=== PATIENT | female | born 1955 | race African-American/Black ===

== ENCOUNTER 2016-11-25 23:14 | Emergency (ER) | payer BC, OTHER ==
[2016-11-26 00:20] LABS: INR 0.97
[2016-11-26 00:24] LABS: BASO % 0.2 % (0.0-1.0); EOS # 0.2 K/mm3 (0.0-0.50); EOS % 1.9 % (0.0-3.0); LARGE UNSTAINED CELL # 0.2 K/mm3 (0.0-0.4); LARGE UNSTAINED CELL % 2.1 % (0.0-4.0); LYMPH # 1.9 K/mm3 (1.5-4.5); LYMPH % 19.2 % (24.0-44.0); MEAN CORPUSCULAR HEMOGLOBIN 29.2 pg (27.0-33.0); MEAN CORPUSCULAR HGB CONC 31.6 g/dl (32.0-36.5); MEAN CORPUSCULAR VOLUME 92.4 fl (80.0-96.0); MONO # 0.6 K/mm3 (0.0-0.8); MONO % 6.2 % (0.0-5.0); NEUTROPHILS # 7.1 K/mm3 (1.8-7.7); NEUTROPHILS % 70.5 % (36.0-66.0); PLATELET COUNT, AUTOMATED 314 k/mm3 (150-450); RED CELL DISTRIBUTION WIDTH 12.5 % (11.5-14.5); WHITE BLOOD COUNT 10.1 K/mm3 (4.0-10.0)
[2016-11-26 00:29] LABS: ANION GAP 8 MEQ/L (8-16); BLOOD UREA NITROGEN 17 MG/DL (7-18); CALCIUM LEVEL 8.3 MG/DL (8.5-10.1); CARBON DIOXIDE LEVEL 25 MEQ/L (21-32); CHLORIDE LEVEL 108 MEQ/L (98-107); CREATININE FOR GFR 1.18 MG/DL (0.55-1.02); GLOMERULAR FILTRATION RATE > 60.0 (>51); GLUCOSE, FASTING 132 MG/DL (70-105); POTASSIUM SERUM 3.6 MEQ/L (3.5-5.1); SODIUM LEVEL 141 MEQ/L (136-145)
--- NOTE | 2016-11-26 00:56 | EDDOCDS ---
Nurse's Notes [facility] Name: Karma Burks Age: 61 yrs Sex: Female : 1955 Arrival Date: 11/25/2016 Time: 23:14 Bed Triage 2 Private MD: [facility], [place] Diagnosis: Pain in lower leg-BILATERAL Presentation: 11/25 23:22 Presenting complaint: Patient states: Patient reports that leg cramping. Patient jmb reports that she feels she might have a deficiency so decided to come in. Adult Sepsis Screening: The patient does not have new or worsening altered mentation. Patient's respiratory rate is less than 22. Systolic blood pressure is greater than 100. Patient has a qSOFA score of 0- Negative Sepsis Screen. Suicide/Homicide risk assessment- the patient denies having any suicidal and/or homicidal ideations and does not present with any other emotional, behavioral or mental health complaints. 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 Transition of care: patient was not received from another setting of care. 23:22 Acuity: KIRT Level 4 b 23:22 Method Of Arrival: Walkin/Carried/Asstd jmb Triage Assessment: 23:24 General: Appears in no apparent distress, comfortable, Behavior is appropriate for age, jmb cooperative. Pain: Denies pain. HIV screening NA for this visit Offered previously. Neurological: Level of Consciousness is awake, alert, obeys commands, Oriented to person, place, time, Speech is normal, Facial symmetry appears normal, Facial symmetry: tongue is midline. Respiratory: Airway is patent Respiratory effort is even, unlabored, Respiratory pattern is regular, symmetrical. Derm: Skin is normal. Musculoskeletal: Range of motion intact in all extremities. Historical: - Allergies: Tetracycline; - Home Meds: 1. valsartan 320 mg oral tab 1 tab once daily 2. metoprolol tartrate 50 mg Oral tab 1 tab 2 times per day 3. amlodipine 10 mg Oral tab 1 tab once daily - PMHx: Hypercholesterolemia; Hypertension; Sarcoidosis; uterine cancer; - PSHx: Hysterectomy; Breast Reduction; - Social history: Smoking status: Patient states was never smoker of tobacco. No barriers to communication noted, The patient speaks fluent Sami, Speaks appropriately for age. - Family history: Not pertinent. - : The pt / caregiver states he / she is not on anticoagulants. Home medication list is obtained from the patient. - Exposure Risk Screening:: None identified. Screenin:58 Screening information is obtained from the patient. Fall risk: No risks identified. jmb Assistance ADL's: requires no assistance with activities of daily living. Abuse/DV Screen: The patient / caregiver reports he/she is: not in a situation that causes fear, pain or injury. Nutritional screening: No deficits noted. home support is adequate. 11/26 00:55 Advance Directives: Currently, there is no health care proxy. There is no active DNR jmb order. There is no living will. There is no Power of Manufacturing Planner. Assessment: 11/25 23:58 General: Appears in no apparent distress, comfortable, Behavior is appropriate for age, jmb cooperative, Patient in room doing craft work. . Pain: Denies pain. Neurological: Level of Consciousness is awake, alert, obeys commands, Oriented to person, place, time, Speech is normal, Facial symmetry appears normal, Facial symmetry: tongue is midline. Cardiovascular: Capillary refill < 3 seconds Heart tones S1 S2 present Pulses are all present. Rhythm is regular. Respiratory: Airway is patent Respiratory effort is even, unlabored, Respiratory pattern is regular, symmetrical, Breath sounds are clear bilaterally. GI: Abdomen is non- distended Bowel sounds present X 4 quads. Abd is soft X 4 quads. Derm: Skin is normal. Musculoskeletal: Range of motion intact in all extremities. 11/26 00:30 General: Appears in no apparent distress, comfortable, Behavior is appropriate for age, jmb cooperative. Neurological: Level of Consciousness is awake, alert, obeys commands, Oriented to person, place, time. Respiratory: Airway is patent Respiratory effort is even, unlabored, Respiratory pattern is regular, symmetrical. 00:54 General: Patient instructed on discharge instructions. Patient asked if there were any b questions regarding discharge, patient stated no. Patient signed discharge instructions. Patient discharged in stable condition. . Vital Signs: 11/25 23:15 BP 134 / 77; Pulse 92; Resp 18 S; Temp 96.5(O); Pulse Ox 100% on R/A; Weight 117.03 kg gr2 (R); Height 64 in. (162.56 cm) (R); Pain 4/10; 23:15 Body Mass Index 44.29 (117.03 kg, 162.56 cm) gr2 Vitals: 23:15 Log In Time: November 25, 2016 at 23:15. gr2 ED Course: 23:15 Patient visited by Alyssa Meza. gr2 23:15 [facility] is Private Physician. gr2 23:15 Patient moved to Waiting gr2 23:17 Patient visited by Alyssa Meza. gr2 23:17 Patient moved to Pre RCE gr2 23:23 Triage Initiated jmb 23:[address] RPA-C is PHCP. ck7 23:25 Magdi Mccauley DO is Attending Physician. ck7 23:[address] RPA-C. ck7 23:25 Patient moved to Triage 2 jmb 23:43 [facility] Payment Agreement was scanned into [employer] and attached to record. hs2 23:58 The patient / caregiver is instructed regarding the plan of care and ED course. jmb 23:58 Pt & Aptt Sent. jmb 23:58 MED Profile Sent. jmb 23:58 CBC with Diff Sent. jmb 23:58 No IV's were initiated during this patient's visit. No procedures done that require jmb assistance. 23:59 Patient visited by Abraham Buckley RN. jmb 11/26 00:06 Patient moved to Ultrasound br3 00:30 Patient moved to Triage 2 br3 00:[address] RPA-C. ck7 00:47 [facility] is Referral Physician. ck7 Order Results: Lab Order: CBC with Diff; SPEC'M 11/25/16 23:55 Test: WHITE BLOOD COUNT; Value: 10.1; Range: 4.0-10.0; Abnormal: Above high normal; Units: K/mm3; Status: F Test: RED BLOOD COUNT; Value: 4.12; Range: 4.00-5.40; Units: M/mm3; Status: F Test: HEMOGLOBIN; Value: 12.0; Range: 12.0-16.0; Units: g/dl; Status: F Test: HEMATOCRIT; Value: 38.1; Range: 36.0-47.0; Units: %; Status: F Test: MEAN CORPUSCULAR VOLUME; Value: 92.4; Range: 80.0-96.0; Units: fl; Status: F Test: MEAN CORPUSCULAR HEMOGLOBIN; Value: 29.2; Range: 27.0-33.0; Units: pg; Status: F Test: MEAN CORPUSCULAR HGB CONC; Value: 31.6; Range: 32.0-36.5; Abnormal: Below low normal; Units: g/dl; Status: F Test: RED CELL DISTRIBUTION WIDTH; Value: 12.5; Range: 11.5-14.5; Units: %; Status: F Test: PLATELET COUNT, AUTOMATED; Value: 314; Range: 150-450; Units: k/mm3; Status: F Test: NEUTROPHILS %; Value: 70.5; Range: 36.0-66.0; Abnormal: Above high normal; Units: %; Status: F Test: LYMPH %; Value: 19.2; Range: 24.0-44.0; Abnormal: Below low normal; Units: %; Status: F Test: MONO %; Value: 6.2; Range: 0.0-5.0; Abnormal: Above high normal; Units: %; Status: F Test: EOS %; Value: 1.9; Range: 0.0-3.0; Units: %; Status: F Test: BASO %; Value: 0.2; Range: 0.0-1.0; Units: %; Status: F Test: LARGE UNSTAINED CELL %; Value: 2.1; Range: 0.0-4.0; Units: %; Status: F Test: NEUTROPHILS #; Value: 7.1; Range: 1.8-7.7; Units: K/mm3; Status: F Test: LYMPH #; Value: 1.9; Range: 1.5-4.5; Units: K/mm3; Status: F Test: MONO #; Value: 0.6; Range: 0.0-0.8; Units: K/mm3; Status: F Test: EOS #; Value: 0.2; Range: 0.0-0.50; Units: K/mm3; Status: F Test: BASO #; Value: 0.0; Range: 0.0-0.2; Units: K/mm3; Status: F Test: LARGE UNSTAINED CELL #; Value: 0.2; Range: 0.0-0.4; Units: K/mm3; Status: F Lab Order: MED Profile; SPEC'11/25/16 23:55 Test: GLUCOSE, FASTING; Value: 132; Range: 70-105; Abnormal: Above high normal; Units: MG/DL; Status: F Test: BLOOD UREA NITROGEN; Value: 17; Range: 7-18; Units: MG/DL; Status: F Test: CREATININE FOR GFR; Value: 1.18; Range: 0.55-1.02; Abnormal: Above high normal; Units: MG/DL; Status: F Test: GLOMERULAR FILTRATION RATE; Value: > 60.0; Range: >51; Status: F Test: SODIUM LEVEL; Value: 141; Range: 136-145; Units: MEQ/L; Status: F Test: POTASSIUM SERUM; Value: 3.6; Range: 3.5-5.1; Units: MEQ/L; Status: F Test: CHLORIDE LEVEL; Value: 108; Range: 98-107; Abnormal: Above high normal; Units: MEQ/L; Status: F Test: CARBON DIOXIDE LEVEL; Value: 25; Range: 21-32; Units: MEQ/L; Status: F Test: ANION GAP; Value: 8; Range: 8-16; Units: MEQ/L; Status: F Test: CALCIUM LEVEL; Value: 8.3; Range: 8.5-10.1; Abnormal: Below low normal; Units: MG/DL; Status: F Test Note: ; Units are mL/min/1.73 m2 Chronic Kidney Disease Staging per NKF: Stage I & II GFR >=60 Normal to Mildly Decreased Stage III GFR 30-59 Moderately Decreased Stage IV GFR 15-29 Severely Decreased Stage V GFR <15 Very Little GFR Left ESRD GFR <15 on MACHINE JOINT CUTTER Lab Order: Pt & Aptt; SPEC'M 11/25/16 23:55 Test: PROTHROMBIN TIME; Value: 13.0; Range: 12.3-14.5; Units: SECONDS; Status: F Test: INR; Value: 0.97; Status: F Test: PARTIAL THROMBOPLASTIN TIME; Value: 29.3; Range: 26.6-37.1; Units: SECONDS; Status: F Test Note: ; THERAPUTIC HUMAN INR VALUES INDICATIONS NORMAL RANGES PROPHYLAXIS/TREATMENT OF: VENOUS THROMBOSIS 2.0-3.0 PULMONARY EMBOLISM 2.0-3.0 PREVENTION OF SYSTEMIC EMBOLISM FROM: TISSUE HEART VALVES 2.0-3.0 ACUTE MYOCARDIAL INFARCTION 2.0-3.0 VALVULAR HEART DISEASE 2.0-3.0 ATRIAL FIBRILLATION 2.0-3.0 MECHANICAL VALVES(HIGH RISK) 2.5-3.5 RECURRENT MYOCARDIAL INFARCTION 2.5-3.5 Outcome: 00:48 Discharge ordered by Provider. ck7 00:55 Discharge Assessment: Patient awake, alert and oriented x 3. No cognitive and/or jmb functional deficits noted. Patient verbalized understanding of disposition instructions. Patient awake and alert. obeys commands, Oriented to person, place and time. Patient verbalized understanding of disposition instructions. Patient has no functional deficits. patient administered narcotics - no. The following High Risk Discharge criteria are identified: None. Discharged to home ambulatory. Condition: stable Condition: improved. Discharge instructions given to patient, Instructed on discharge instructions, follow up and referral plans. Demonstrated understanding of instructions, Pt was receptive of discharge instructions/ teaching. No special radiology studies were completed. Ultrasound Study completed. Property sent home with patient. 00:56 Patient left the ED. anita Signatures: Mayi Meza br3 [address], RPA-C RPA-Cck7 Alyssa Meza gr2 Abraham Buckley,RN RN Clau Pang, Reg Reg hs2 KESHAV
--- NOTE | 2016-11-26 00:56 | EDDOCDS ---
Physician Documentation [facility] Name: Karma Burks Age: 61 yrs Sex: Female : 1955 Arrival Date: 11/25/2016 Time: 23:14 Bed Triage 2 Private MD: [facility] Disposition: 11/26/16 00:48 Discharged to Home/Self Care. Impression: Pain in lower leg - BILATERAL. - Condition is Stable. - Discharge Instructions: Muscle Cramps and Spasms. - Medication Reconciliation, Local Pharmacy Hours form. - Follow up: [facility]; When: Tomorrow; Reason: Recheck today's complaints, Continuance of care. Follow up: Emergency Department; When: As needed; Reason: Worsening of conditions. - Problem is new. - Symptoms have improved. - Notes: INCREASE HYDRATION, FOLLOW UP WITH YOUR DOCTOR TOMORROW, RETURN TO THE ER IF THE SYMPTOMS WORSEN OR BECOME CONCERNING Historical: - Allergies: Tetracycline; - Home Meds: 1. valsartan 320 mg oral tab 1 tab once daily 2. metoprolol tartrate 50 mg Oral tab 1 tab 2 times per day 3. amlodipine 10 mg Oral tab 1 tab once daily - PMHx: Hypercholesterolemia; Hypertension; Sarcoidosis; uterine cancer; - PSHx: Hysterectomy; Breast Reduction; - Social history: Smoking status: Patient states was never smoker of tobacco. No barriers to communication noted, The patient speaks fluent Polish, Speaks appropriately for age. - Family history: Not pertinent. - : The pt / caregiver states he / she is not on anticoagulants. Home medication list is obtained from the patient. - Exposure Risk Screening:: None identified. Vital Signs: 11/25 23:15 BP 134 / 77; Pulse 92; Resp 18 S; Temp 96.5(O); Pulse Ox 100% on R/A; Weight 117.03 kg gr2 / 258.01 lbs (R); Height 64 in. (162.56 cm) (R); Pain 4/10; 23:15 Body Mass Index 44.29 (117.03 kg, 162.56 cm) gr2 MDM: 23:41 Financial registration complete. hs2 23:43 [facility] Payment Agreement was scanned into [employer] and attached to record. hs2 23:46 CBC with Diff Ordered. EDMS 23:46 MED Profile Ordered. EDMS 23:46 Pt & Aptt Ordered. EDMS 23:47 US Lower Extremities Bilateral R/O DVT Ordered. EDMS 11/26 00:32 CBC with Diff Reviewed. ck7 00:32 MED Profile Reviewed. ck7 00:32 Pt & Aptt Reviewed. ck7 Signatures: Dispatcher [employer] EDMS [address], RPA-C RPA-Cck7 Abraham BuckleyRN RN Clau Pang, Reg Reg hs2 The chart was reviewed and I authenticate all verbal orders and agree with the evaluation and treatment provided.Attachments: 11/25 23:43 [place] [place] hs2 MTDD
--- NOTE | 2016-11-26 01:50 | REPUSA ---
CLINICAL HISTORY: Edema. COMMENTS: Real time sonography with duplex doppler of the extremities bilaterally was performed with attention to the major deep venous structures. Evaluation reveals the common femoral, superficial femoral and popliteal veins bilaterally to be comp letely compressible without intraluminal thrombus. There is normal spontaneous phasic flow and augmen tation in all deep veins. The greater saphenous/common femoral vein junctions are patent bilaterally. IMPRESSION: No evidence of DVT in the lower extremities bilaterally. Thank you for your kind referral of this patient.
--- NOTE | 2016-11-28 01:57 | EDDOCDS ---
Physician Documentation [facility] Name: Karma Burks Age: 61 yrs Sex: Female : 1955 Arrival Date: 11/25/2016 Time: 23:14 Bed Triage 2 Private MD: [facility] Disposition: 11/26/16 00:48 Discharged to Home/Self Care. Impression: Pain in lower leg - BILATERAL. - Condition is Stable. - Discharge Instructions: Muscle Cramps and Spasms. - Medication Reconciliation, Local Pharmacy Hours form. - Follow up: [facility]; When: Tomorrow; Reason: Recheck today's complaints, Continuance of care. Follow up: Emergency Department; When: As needed; Reason: Worsening of conditions. - Problem is new. - Symptoms have improved. - Notes: INCREASE HYDRATION, FOLLOW UP WITH YOUR DOCTOR TOMORROW, RETURN TO THE ER IF THE SYMPTOMS WORSEN OR BECOME CONCERNING Historical: - Allergies: Tetracycline; - Home Meds: 1. valsartan 320 mg oral tab 1 tab once daily 2. metoprolol tartrate 50 mg Oral tab 1 tab 2 times per day 3. amlodipine 10 mg Oral tab 1 tab once daily - PMHx: Hypercholesterolemia; Hypertension; Sarcoidosis; uterine cancer; - PSHx: Hysterectomy; Breast Reduction; - Social history: Smoking status: Patient states was never smoker of tobacco. No barriers to communication noted, The patient speaks fluent Croatian, Speaks appropriately for age. - Family history: Not pertinent. - : The pt / caregiver states he / she is not on anticoagulants. Home medication list is obtained from the patient. - Exposure Risk Screening:: None identified. Vital Signs: 11/25 23:15 BP 134 / 77; Pulse 92; Resp 18 S; Temp 96.5(O); Pulse Ox 100% on R/A; Weight 117.03 kg gr2 / 258.01 lbs (R); Height 64 in. (162.56 cm) (R); Pain 4/10; 11/26 00:56 BP 133 / 77; Pulse 78; Resp 18; Temp 97.9(TE); Pulse Ox 97% on R/A; Pain 0/10; mdr 11/25 23:15 Body Mass Index 44.29 (117.03 kg, 162.56 cm) gr2 MDM: 11/25 23:41 Financial registration complete. hs2 23:43 [facility] Payment Agreement was scanned into [employer] and attached to record. hs2 23:46 CBC with Diff Ordered. EDMS 23:46 MED Profile Ordered. EDMS 23:46 Pt & Aptt Ordered. EDMS 23:47 US Lower Extremities Bilateral R/O DVT Ordered. EDMS 11/26 00:32 CBC with Diff Reviewed. ck7 00:32 MED Profile Reviewed. ck7 00:32 Pt & Aptt Reviewed. ck7 13:47 T-Sheet-- Draft Copy was scanned into [facility] and attached to record. gb Signatures: Dispatcher [employer] EDMS Emilee Sun, Reg Reg gb [address], JOYCE-C RPA-Cck7 Abraham Buckley,RN RN christinab Clau Hilton, Reg Reg hs2 The chart was reviewed and I authenticate all verbal orders and agree with the evaluation and treatment provided.Attachments: 11/25 23:43 [facility] Payment Agreement hs2 11/26 13:47 T-Sheet-- Draft Copy gb Chart Complete MTDD
--- NOTE | 2016-11-28 01:57 | EDDOCDS ---
Nurse's Notes [facility] Name: Karma Burks Age: 61 yrs Sex: Female : 1955 Arrival Date: 11/25/2016 Time: 23:14 Bed Triage 2 Private MD: [facility] [place] Diagnosis: Pain in lower leg-BILATERAL Presentation: 11/25 23:22 Presenting complaint: Patient states: Patient reports that leg cramping. Patient jmb reports that she feels she might have a deficiency so decided to come in. Adult Sepsis Screening: The patient does not have new or worsening altered mentation. Patient's respiratory rate is less than 22. Systolic blood pressure is greater than 100. Patient has a qSOFA score of 0- Negative Sepsis Screen. Suicide/Homicide risk assessment- the patient denies having any suicidal and/or homicidal ideations and does not present with any other emotional, behavioral or mental health complaints. Status: Patient is not a medical customer service representative or dependent. Transition of care: patient was not received from another setting of care. 23:22 Acuity: KIRT Level 4 b 23:22 Method Of Arrival: Walkin/Carried/Asstd jmb Triage Assessment: 23:24 General: Appears in no apparent distress, comfortable, Behavior is appropriate for age, jmb cooperative. Pain: Denies pain. HIV screening NA for this visit Offered previously. Neurological: Level of Consciousness is awake, alert, obeys commands, Oriented to person, place, time, Speech is normal, Facial symmetry appears normal, Facial symmetry: tongue is midline. Respiratory: Airway is patent Respiratory effort is even, unlabored, Respiratory pattern is regular, symmetrical. Derm: Skin is normal. Musculoskeletal: Range of motion intact in all extremities. Historical: - Allergies: Tetracycline; - Home Meds: 1. valsartan 320 mg oral tab 1 tab once daily 2. metoprolol tartrate 50 mg Oral tab 1 tab 2 times per day 3. amlodipine 10 mg Oral tab 1 tab once daily - PMHx: Hypercholesterolemia; Hypertension; Sarcoidosis; uterine cancer; - PSHx: Hysterectomy; Breast Reduction; - Social history: Smoking status: Patient states was never smoker of tobacco. No barriers to communication noted, The patient speaks fluent Vietnamese, Speaks appropriately for age. - Family history: Not pertinent. - : The pt / caregiver states he / she is not on anticoagulants. Home medication list is obtained from the patient. - Exposure Risk Screening:: None identified. Screenin:58 Screening information is obtained from the patient. Fall risk: No risks identified. jmb Assistance ADL's: requires no assistance with activities of daily living. Abuse/DV Screen: The patient / caregiver reports he/she is: not in a situation that causes fear, pain or injury. Nutritional screening: No deficits noted. home support is adequate. 11/26 00:55 Advance Directives: Currently, there is no health care proxy. There is no active DNR jmb order. There is no living will. There is no Power of Patent Lawyer. Assessment: 11/25 23:58 General: Appears in no apparent distress, comfortable, Behavior is appropriate for age, jmb cooperative, Patient in room doing craft work. . Pain: Denies pain. Neurological: Level of Consciousness is awake, alert, obeys commands, Oriented to person, place, time, Speech is normal, Facial symmetry appears normal, Facial symmetry: tongue is midline. Cardiovascular: Capillary refill < 3 seconds Heart tones S1 S2 present Pulses are all present. Rhythm is regular. Respiratory: Airway is patent Respiratory effort is even, unlabored, Respiratory pattern is regular, symmetrical, Breath sounds are clear bilaterally. GI: Abdomen is non- distended Bowel sounds present X 4 quads. Abd is soft X 4 quads. Derm: Skin is normal. Musculoskeletal: Range of motion intact in all extremities. 11/26 00:30 General: Appears in no apparent distress, comfortable, Behavior is appropriate for age, jmb cooperative. Neurological: Level of Consciousness is awake, alert, obeys commands, Oriented to person, place, time. Respiratory: Airway is patent Respiratory effort is even, unlabored, Respiratory pattern is regular, symmetrical. 00:54 General: Patient instructed on discharge instructions. Patient asked if there were any b questions regarding discharge, patient stated no. Patient signed discharge instructions. Patient discharged in stable condition. . Vital Signs: 11/25 23:15 BP 134 / 77; Pulse 92; Resp 18 S; Temp 96.5(O); Pulse Ox 100% on R/A; Weight 117.03 kg gr2 (R); Height 64 in. (162.56 cm) (R); Pain 4/10; 11/26 00:56 BP 133 / 77; Pulse 78; Resp 18; Temp 97.9(TE); Pulse Ox 97% on R/A; Pain 0/10; mdr 11/25 23:15 Body Mass Index 44.29 (117.03 kg, 162.56 cm) gr2 Vitals: 11/25 23:15 Log In Time: November 25, 2016 at 23:15. gr2 ED Course: 23:15 Patient visited by Alyssa Meza. gr2 23:15 [facility] is Private Physician. gr2 23:15 Patient moved to Waiting gr2 23:17 Patient visited by Alyssa Meza. gr2 23:17 Patient moved to Pre RCE gr2 23:23 Triage Initiated jmb 23:[address] RPA-C is PHCP. ck7 23:25 Magdi Mccauley DO is Attending Physician. ck7 23:[address] RPA-C. ck7 23:25 Patient moved to Triage 2 jmb 23:43 [facility] Payment Agreement was scanned into [employer] and attached to record. hs2 23:58 The patient / caregiver is instructed regarding the plan of care and ED course. jmb 23:58 Pt & Aptt Sent. jmb 23:58 MED Profile Sent. jmb 23:58 CBC with Diff Sent. jmb 23:58 No IV's were initiated during this patient's visit. No procedures done that require jmb assistance. 23:59 Patient visited by Abraham Buckley RN. jmb 11/26 00:06 Patient moved to Ultrasound br3 00:30 Patient moved to Triage 2 br3 00:[address] RPA-C. ck7 00:47 [facility] is Referral Physician. ck7 00:57 Patient visited by Jose Woo PCA. mdr 01:55 US Lower Extremities Bilateral R/O DVT Returned. EDMS 13:47 T-Sheet-- Draft Copy was scanned into [employer] and attached to record. gb Order Results: Lab Order: CBC with Diff; SPEC'M 11/25/16 23:55 Test: WHITE BLOOD COUNT; Value: 10.1; Range: 4.0-10.0; Abnormal: Above high normal; Units: K/mm3; Status: F Test: RED BLOOD COUNT; Value: 4.12; Range: 4.00-5.40; Units: M/mm3; Status: F Test: HEMOGLOBIN; Value: 12.0; Range: 12.0-16.0; Units: g/dl; Status: F Test: HEMATOCRIT; Value: 38.1; Range: 36.0-47.0; Units: %; Status: F Test: MEAN CORPUSCULAR VOLUME; Value: 92.4; Range: 80.0-96.0; Units: fl; Status: F Test: MEAN CORPUSCULAR HEMOGLOBIN; Value: 29.2; Range: 27.0-33.0; Units: pg; Status: F Test: MEAN CORPUSCULAR HGB CONC; Value: 31.6; Range: 32.0-36.5; Abnormal: Below low normal; Units: g/dl; Status: F Test: RED CELL DISTRIBUTION WIDTH; Value: 12.5; Range: 11.5-14.5; Units: %; Status: F Test: PLATELET COUNT, AUTOMATED; Value: 314; Range: 150-450; Units: k/mm3; Status: F Test: NEUTROPHILS %; Value: 70.5; Range: 36.0-66.0; Abnormal: Above high normal; Units: %; Status: F Test: LYMPH %; Value: 19.2; Range: 24.0-44.0; Abnormal: Below low normal; Units: %; Status: F Test: MONO %; Value: 6.2; Range: 0.0-5.0; Abnormal: Above high normal; Units: %; Status: F Test: EOS %; Value: 1.9; Range: 0.0-3.0; Units: %; Status: F Test: BASO %; Value: 0.2; Range: 0.0-1.0; Units: %; Status: F Test: LARGE UNSTAINED CELL %; Value: 2.1; Range: 0.0-4.0; Units: %; Status: F Test: NEUTROPHILS #; Value: 7.1; Range: 1.8-7.7; Units: K/mm3; Status: F Test: LYMPH #; Value: 1.9; Range: 1.5-4.5; Units: K/mm3; Status: F Test: MONO #; Value: 0.6; Range: 0.0-0.8; Units: K/mm3; Status: F Test: EOS #; Value: 0.2; Range: 0.0-0.50; Units: K/mm3; Status: F Test: BASO #; Value: 0.0; Range: 0.0-0.2; Units: K/mm3; Status: F Test: LARGE UNSTAINED CELL #; Value: 0.2; Range: 0.0-0.4; Units: K/mm3; Status: F Lab Order: MED Profile; SPEC'M 11/25/16 23:55 Test: GLUCOSE, FASTING; Value: 132; Range: 70-105; Abnormal: Above high normal; Units: MG/DL; Status: F Test: BLOOD UREA NITROGEN; Value: 17; Range: 7-18; Units: MG/DL; Status: F Test: CREATININE FOR GFR; Value: 1.18; Range: 0.55-1.02; Abnormal: Above high normal; Units: MG/DL; Status: F Test: GLOMERULAR FILTRATION RATE; Value: > 60.0; Range: >51; Status: F Test: SODIUM LEVEL; Value: 141; Range: 136-145; Units: MEQ/L; Status: F Test: POTASSIUM SERUM; Value: 3.6; Range: 3.5-5.1; Units: MEQ/L; Status: F Test: CHLORIDE LEVEL; Value: 108; Range: 98-107; Abnormal: Above high normal; Units: MEQ/L; Status: F Test: CARBON DIOXIDE LEVEL; Value: 25; Range: 21-32; Units: MEQ/L; Status: F Test: ANION GAP; Value: 8; Range: 8-16; Units: MEQ/L; Status: F Test: CALCIUM LEVEL; Value: 8.3; Range: 8.5-10.1; Abnormal: Below low normal; Units: MG/DL; Status: F Test Note: ; Units are mL/min/1.73 m2 Chronic Kidney Disease Staging per NKF: Stage I & II GFR >=60 Normal to Mildly Decreased Stage III GFR 30-59 Moderately Decreased Stage IV GFR 15-29 Severely Decreased Stage V GFR <15 Very Little GFR Left ESRD GFR <15 on POWDER MONKEY Lab Order: Pt & Aptt; SPEC'M 11/25/16 23:55 Test: PROTHROMBIN TIME; Value: 13.0; Range: 12.3-14.5; Units: SECONDS; Status: F Test: INR; Value: 0.97; Status: F Test: PARTIAL THROMBOPLASTIN TIME; Value: 29.3; Range: 26.6-37.1; Units: SECONDS; Status: F Test Note: ; THERAPUTIC HUMAN INR VALUES INDICATIONS NORMAL RANGES PROPHYLAXIS/TREATMENT OF: VENOUS THROMBOSIS 2.0-3.0 PULMONARY EMBOLISM 2.0-3.0 PREVENTION OF SYSTEMIC EMBOLISM FROM: TISSUE HEART VALVES 2.0-3.0 ACUTE MYOCARDIAL INFARCTION 2.0-3.0 VALVULAR HEART DISEASE 2.0-3.0 ATRIAL FIBRILLATION 2.0-3.0 MECHANICAL VALVES(HIGH RISK) 2.5-3.5 RECURRENT MYOCARDIAL INFARCTION 2.5-3.5 Radiology Order: US Lower Extremities Bilateral R/O DVT Test: US Lower Extremities Bilateral R/O DVT REASON FOR EXAMINATION: Deformity/Swelling; ; CLINICAL HISTORY: Edema.; COMMENTS:; ; Real time sonography with duplex doppler of the extremities bilaterally was performed with attention; to the major deep venous structures.; Evaluation reveals the common femoral, superficial femoral and popliteal veins bilaterally to be comp; letely compressible without intraluminal thrombus. There is normal spontaneous phasic flow and augmen; tation in all deep veins. The greater saphenous/common femoral vein junctions are patent bilaterally.; ; IMPRESSION:; No evidence of DVT in the lower extremities bilaterally.; Thank you for your kind referral of this patient.; ; Outcome: 00:48 Discharge ordered by Provider. ck7 00:55 Discharge Assessment: Patient awake, alert and oriented x 3. No cognitive and/or jmb functional deficits noted. Patient verbalized understanding of disposition instructions. Patient awake and alert. obeys commands, Oriented to person, place and time. Patient verbalized understanding of disposition instructions. Patient has no functional deficits. patient administered narcotics - no. The following High Risk Discharge criteria are identified: None. Discharged to home ambulatory. Condition: stable Condition: improved. Discharge instructions given to patient, Instructed on discharge instructions, follow up and referral plans. Demonstrated understanding of instructions, Pt was receptive of discharge instructions/ teaching. No special radiology studies were completed. Ultrasound Study completed. Property sent home with patient. 00:56 Patient left the ED. anita Signatures: Dispatcher [employer] EDMS Emilee Sun, Reg Reg gb Mayi Meza br3 [address], RPA-C RPA-Cck7 Alyssa Meza gr2 Abraham Buckley,RN RN Jose Daniel, SUKHJINDER ELECTRIC FURNACE OPERATOR Clau Caballero, Reg Reg hs2 Chart Complete MTDD
--- NOTE | 2016-11-28 01:57 | EDDOCDS ---
Physician Documentation [facility] Name: Karma Burks Age: 61 yrs Sex: Female : 1955 Arrival Date: 11/25/2016 Time: 23:14 Bed Triage 2 Private MD: [facility] Disposition: 11/26/16 00:48 Discharged to Home/Self Care. Impression: Pain in lower leg - BILATERAL. - Condition is Stable. - Discharge Instructions: Muscle Cramps and Spasms. - Medication Reconciliation, Local Pharmacy Hours form. - Follow up: [facility]; When: Tomorrow; Reason: Recheck today's complaints, Continuance of care. Follow up: Emergency Department; When: As needed; Reason: Worsening of conditions. - Problem is new. - Symptoms have improved. - Notes: INCREASE HYDRATION, FOLLOW UP WITH YOUR DOCTOR TOMORROW, RETURN TO THE ER IF THE SYMPTOMS WORSEN OR BECOME CONCERNING Historical: - Allergies: Tetracycline; - Home Meds: 1. valsartan 320 mg oral tab 1 tab once daily 2. metoprolol tartrate 50 mg Oral tab 1 tab 2 times per day 3. amlodipine 10 mg Oral tab 1 tab once daily - PMHx: Hypercholesterolemia; Hypertension; Sarcoidosis; uterine cancer; - PSHx: Hysterectomy; Breast Reduction; - Social history: Smoking status: Patient states was never smoker of tobacco. No barriers to communication noted, The patient speaks fluent Frisian, Speaks appropriately for age. - Family history: Not pertinent. - : The pt / caregiver states he / she is not on anticoagulants. Home medication list is obtained from the patient. - Exposure Risk Screening:: None identified. Vital Signs: 11/25 23:15 BP 134 / 77; Pulse 92; Resp 18 S; Temp 96.5(O); Pulse Ox 100% on R/A; Weight 117.03 kg gr2 / 258.01 lbs (R); Height 64 in. (162.56 cm) (R); Pain 4/10; 11/26 00:56 BP 133 / 77; Pulse 78; Resp 18; Temp 97.9(TE); Pulse Ox 97% on R/A; Pain 0/10; mdr 11/25 23:15 Body Mass Index 44.29 (117.03 kg, 162.56 cm) gr2 MDM: 11/25 23:41 Financial registration complete. hs2 23:43 [facility] Payment Agreement was scanned into [employer] and attached to record. hs2 23:46 CBC with Diff Ordered. EDMS 23:46 MED Profile Ordered. EDMS 23:46 Pt & Aptt Ordered. EDMS 23:47 US Lower Extremities Bilateral R/O DVT Ordered. EDMS 11/26 00:32 CBC with Diff Reviewed. ck7 00:32 MED Profile Reviewed. ck7 00:32 Pt & Aptt Reviewed. ck7 13:47 T-Sheet-- Draft Copy was scanned into [employer] and attached to record. gb Signatures: Dispatcher [employer] EDMS Emilee Sun, Reg Reg gb [address], JOYCE-C RPA-Cck7 Abraham Buckley,RN RN christinab Clau Hilton, Reg Reg hs2 The chart was reviewed and I authenticate all verbal orders and agree with the evaluation and treatment provided.Attachments: 11/25 23:43 [facility] Payment Agreement hs2 11/26 13:47 T-Sheet-- Draft Copy gb Chart Complete MTDD
== END 2016-11-26 00:56 | disposition home or self-care (01) ==
LOC: M ED 23:14
DX: M79.604 Pain in right leg (principal); M79.605 Pain in left leg; E78.00 Pure hypercholesterolemia, unspecified; I10 Essential (primary) hypertension; D86.9 Sarcoidosis, unspecified; Z85.42 Personal history of malignant neoplasm of other parts of uterus; Z79.899 Other long term (current) drug therapy; Z88.1 Allergy status to other antibiotic agents

== ENCOUNTER → 2017-06-10 | Outpatient (CLI) | payer OTHER ==
--- NOTE | 2017-06-10 12:27 | REPMRS ---
Patient History The patient states she has not had a clinical breast exam in over a year. Patient is postmenopausal and has history of other cancer at age 55. Family history of breast cancer in maternal aunt under age 50. Reductions of both breasts, 1998. Digital Mammo Screening Bilat: June 10, 2017 - Exam #: [id number] Bilateral CC and MLO view(s) were taken. Technologist: Mayi Vasquez Technologist Prior study comparison: January 31, 2016, digital woman screen mammo, performed at [facility]. October 26, 2014, digital woman screen mammo, performed at [facility]. May 12, 2013, digital woman screen mammo, performed at [facility]. FINDINGS: There are scattered fibroglandular densities. There has been no change in the appearance of the mammogram from the prior studies. There is a mild amount of scattered fibroglandular density which is fairly symmetric. There is no interval development of dominant mass, architectural distortion, or clustered microcalcification suggestive of malignancy. ASSESSMENT: BI-RADS/ACR category 1 mammogram. Negative. Recommendation Routine screening mammogram in 1 year (for women over age 40). This mammogram was interpreted with the aid of an FDA-approved computer-aided dectection system. Electronically Signed By: Cam Lynn MD 06/10/17 [id number]
== END ==
LOC: M RAD 11:11
PROVIDERS: ATTEND Internal Medicine
DX: Z12.31 Encounter for screening mammogram for malignant neoplasm of breast (principal)

== ENCOUNTER 2018-11-16 03:37 | Emergency (ER) | payer OTHER ==
[~2018-11-16] VITALS: Ht 162.6 cm; Wt 115.0 kg
[2018-11-16] MEDS ORDERED: SPIR100T3 (03:47)
[2018-11-16] MEDS ORDERED: HYDR50TA70 (03:47)
[2018-11-16 05:10] LABS: BASO # 0.1 10^3/uL (0.0-0.2); BASO % 0.6 % (0.0-1.0); EOS # 0.3 10^3/uL (0.0-0.50); EOS % 2.5 % (0.0-3.0); HEMATOCRIT 38.8 % (36.0-47.0); LYMPH # 2.5 10^3/uL (1.5-4.5); LYMPH % 22.8 % (24.0-44.0); MEAN CORPUSCULAR HEMOGLOBIN 29.9 pg (27.0-33.0); MEAN CORPUSCULAR HGB CONC 30.9 g/dl (32.0-36.5); MEAN CORPUSCULAR VOLUME 96.5 fl (80.0-96.0); MONO # 0.7 10^3/uL (0.0-0.8); MONO % 6.8 % (0.0-5.0); NEUTROPHILS # 7.3 10^3/uL (1.8-7.7); PLATELET COUNT, AUTOMATED 380 10^3/uL (150-450); RED BLOOD COUNT 4.02 10^6/uL (4.00-5.40); WHITE BLOOD COUNT 10.9 10^3/uL (4.0-10.0)
[2018-11-16] MEDS ORDERED: MORPHINE 2 MG/ML 1ML SYRINGE (J2270) IV ONE (05:15)
[2018-11-16 05:21] LABS: ALBUMIN 3.3 GM/DL (3.2-5.2); ALT/SGPT 22 U/L (12-78); BILIRUBIN,DIRECT < 0.1 MG/DL (0.0-0.2); BILIRUBIN,TOTAL 0.3 MG/DL (0.2-1.0); BLOOD UREA NITROGEN 20 MG/DL (7-18); CALCIUM LEVEL 8.5 MG/DL (8.8-10.2); CARBON DIOXIDE LEVEL 28 MEQ/L (21-32); CHLORIDE LEVEL 106 MEQ/L (98-107); CREATININE FOR GFR 1.47 MG/DL (0.55-1.30); GLOMERULAR FILTRATION RATE 46.6 (>45); GLUCOSE, FASTING 102 MG/DL (70-100); LIPASE 109 U/L (73-393); POTASSIUM SERUM 4.3 MEQ/L (3.5-5.1); SODIUM LEVEL 140 MEQ/L (136-145); TOTAL PROTEIN 7.2 GM/DL (6.4-8.2)
[2018-11-16] MEDS: GASTROGRAFIN SOLUTION 30ML PO SCH ×2 (05:50→06:20)
[2018-11-16 07:06] LABS: APPEARANCE, URINE CLEAR (CLEAR); BACTERIA, URINE AUTO NEGATIVE (NEGATIVE); BILIRUBIN, URINE AUTO NEGATIVE (NEGATIVE); BLOOD, URINE BLOOD NEGATIVE (NEGATIVE); COLOR, URINE STRAW (YELLOW); GLUCOSE, URINE (UA) AUTO NEGATIVE (NEGATIVE); KETONE, URINE AUTO NEGATIVE (NEGATIVE); LEUKOCYTE ESTERASE, URINE AUTO NEGATIVE (NEGATIVE); MUCUS, URINE SMALL (NEGATIVE); NITRITE, URINE AUTO NEGATIVE (NEGATIVE); PROTEIN, URINE AUTO NEGATIVE (NEGATIVE); RBC, URINE AUTO 0 /HPF (0-3); SPECIFIC GRAVITY URINE AUTO 1.009 (1.002-1.035); SQUAMOUS EPITHELIAL CELL UR AU 1 /HPF (0-6); UROBILINOGEN, URINE AUTO 0.2 mg/dL (0.0-2.0); WBC, URINE AUTO 0 /HPF (0-3)
[2018-11-16] MEDS ORDERED: ISOVUE-370 76% 100ML VIAL (Q9967) As Ordered ONE (07:51)
--- NOTE | 2018-11-16 08:34 | REP ---
CT abdomen and pelvis with IV and oral contrast: History: Left lower quadrant pain. No comparison study. CT contrast dose: 100 mL of intravenous Isovue 370. CT findings: Preliminary digital tmh teacher radiograph is unremarkable. There are two opaque gallstones visible. The lung bases are clear on axial CT images. There is a small 1 cm left lobe hepatic cyst near the dome of the diaphragm. No other focal liver lesion is seen. The gallstones visible on axial CT images. Spleen is normal in size and homogeneous in texture. There is an accessory splenule anterior to the spleen adjacent to the splenic flexure of the colon. No pancreatic abnormality is observed. There are bilateral renal cortical cysts. These include a right mid pole cyst 2.6 cm in diameter and two adjacent left mid pole cysts the largest of which measures 2.4 cm. No hydronephrosis is seen. No intrarenal calculus is observed. No retroperitoneal mass or adenopathy is seen. There are surgical clips in the pericaval retroperitoneum on the right. Normal appendix is seen. There is left colonic diverticulosis. There is no CT evidence suggestive of diverticulitis. There is no evidence of obstructive gastrointestinal tract lesion. The uterus is surgically absent. Urinary bladder is unremarkable. No abdominal wall defect is observed. No bony destructive lesion is appreciated. Impression: 1. Cholelithiasis. 2. Left colonic diverticulosis without CT evidence of diverticulitis. 3. Renal and hepatic cysts. Otherwise negative. Electronically Signed by Darren Lynn MD 11/16/2018 06:41 P
[2018-11-16 10:19] VITALS: BP 142/83
== END 2018-11-16 10:21 | disposition home or self-care (01) ==
LOC: M ED 03:37
DX: R10.9 Unspecified abdominal pain (principal); I10 Essential (primary) hypertension; F17.210 Nicotine dependence, cigarettes, uncomplicated
CPT/HCPCS: 74177; 80048; 80076; 81001; 83605; 83690; 85025; 87040; 87086; 96374; 99284; J2270; Q9963; Q9967

== ENCOUNTER 2018-12-14 06:47 | Day surgery (SDC) | payer OTHER ==
[~2018-12-14] VITALS: Ht 162.6 cm; Wt 113.4 kg
[~2018-12-14 06:47] MED LIST: HYDR50TA70 PO; METO1TAB32 PO; MULT1TAB10 PO; NS 1,000 ML IV ONE; OMEP20CA3 PO; PEPT262S PO; SPIR100T3; SPIR100T3 PO; VALS1TAB49 PO
[2018-12-14] MEDS ORDERED: METO1TAB32 PO (08:33)
[2018-12-14] MEDS ORDERED: PROPOFOL 200 MG/20 ML VIAL As Ordered ONE ×2 (09:05→09:06)
[2018-12-14] MEDS ORDERED: LIDOCAINE 2% INJ 100 MG/5 ML SDV (FOR ANES.) As Ordered ONE (09:05)
--- NOTE | 2018-12-14 09:18 | ROOR ---
Patient Name: Karma Burks Procedure Date: 12/14/2018 8:41 AM Date of : 1955 Age: 63 Room: [facility] Gender: Female Note Status: Finalized Procedure: Upper GI endoscopy Indications: Heartburn Providers: DO Sue Stafford MD: Hua Woodward Md Requesting Provider: Medicines: Propofol per Anesthesia Complications: No immediate complications. Procedure: Pre-Anesthesia Assessment: - Prior to the procedure, a History and Physical was performed, and patient medications and allergies were reviewed. The patient is competent. The risks and benefits of the procedure and the sedation options and risks were discussed with the patient. All questions were answered and informed consent was obtained. Patient identification and proposed procedure were verified by the physician, the nurse, the anesthesiologist and the snow technician in the endoscopy suite. Mental Status Examination: alert and oriented. Airway Examination: normal oropharyngeal airway and neck mobility. Respiratory Examination: clear to auscultation. CV Examination: normal. Prophylactic Antibiotics: The patient does not require prophylactic antibiotics. Prior Anticoagulants: The patient has taken no previous anticoagulant or antiplatelet agents. ASA Grade Assessment: III - A patient with severe systemic disease. After reviewing the risks and benefits, the patient was deemed in satisfactory condition to undergo the procedure. The anesthesia plan was to use monitored anesthesia care (MAC). Immediately prior to administration of medications, the patient was re-assessed for adequacy to receive sedatives. The heart rate, respiratory rate, oxygen saturations, blood pressure, adequacy of pulmonary ventilation, and response to care were monitored throughout the procedure. The physical status of the patient was re-assessed after the procedure. The Endoscope was introduced through the mouth, and advanced to the second part of duodenum. The upper GI endoscopy was accomplished without difficulty. The patient tolerated the procedure well. Findings: Localized mild inflammation was found in the prepyloric region of the stomach. Biopsies were taken with a cold forceps for Helicobacter pylori testing. Estimated blood loss was minimal. The exam was otherwise without abnormality. Impression: - Gastritis. Biopsied. - The examination was otherwise normal. Recommendation: - Patient has a contact number available for emergencies. The signs and symptoms of potential delayed complications were discussed with the patient. Return to normal activities tomorrow. Written discharge instructions were provided to the patient. - Telephone my office for pathology results in 1 week. Uzair Blair DO 12/14/2018 9:18:13 AM This report has been signed electronically. Number of Addenda: 0 Note Initiated On: 12/14/2018 8:41 AM Estimated Blood Loss: Estimated blood loss was minimal.
--- NOTE | 2018-12-14 09:20 | ROOR ---
Patient Name: Karma Burks Procedure Date: 12/14/2018 8:41 AM Date of : 1955 Age: 63 Room: [facility] Gender: Female Note Status: Finalized Procedure: Colonoscopy Indications: Screening for colorectal malignant neoplasm Providers: DO Sue Stafofrd MD: Hua Woodward Md Requesting Provider: Medicines: Propofol per Anesthesia Complications: No immediate complications. Procedure: Pre-Anesthesia Assessment: - Prior to the procedure, a History and Physical was performed, and patient medications and allergies were reviewed. The patient is competent. The risks and benefits of the procedure and the sedation options and risks were discussed with the patient. All questions were answered and informed consent was obtained. Patient identification and proposed procedure were verified by the physician, the nurse, the anesthesiologist and the metal room dental technician in the endoscopy suite. Mental Status Examination: alert and oriented. Airway Examination: normal oropharyngeal airway and neck mobility. Respiratory Examination: clear to auscultation. CV Examination: normal. Prophylactic Antibiotics: The patient does not require prophylactic antibiotics. Prior Anticoagulants: The patient has taken no previous anticoagulant or antiplatelet agents. ASA Grade Assessment: III - A patient with severe systemic disease. After reviewing the risks and benefits, the patient was deemed in satisfactory condition to undergo the procedure. The anesthesia plan was to use monitored anesthesia care (MAC). Immediately prior to administration of medications, the patient was re-assessed for adequacy to receive sedatives. The heart rate, respiratory rate, oxygen saturations, blood pressure, adequacy of pulmonary ventilation, and response to care were monitored throughout the procedure. The physical status of the patient was re-assessed after the procedure. The Colonoscope was introduced through the anus and advanced to the cecum, identified by the appendiceal orifice, ileocecal valve and palpation. The colonoscopy was performed without difficulty. The patient tolerated the procedure well. Findings: Multiple small-mouthed diverticula were found in the sigmoid colon. The perianal exam findings include non-thrombosed internal hemorrhoids and internal hemorrhoids (Grade I). The exam was otherwise without abnormality on direct and retroflexion views. Impression: - Diverticulosis in the sigmoid colon. - Non-thrombosed internal hemorrhoids and internal hemorrhoids (Grade I) found on perianal exam. - The examination was otherwise normal on direct and retroflexion views. - No specimens collected. Recommendation: - Patient has a contact number available for emergencies. The signs and symptoms of potential delayed complications were discussed with the patient. Return to normal activities tomorrow. Written discharge instructions were provided to the patient. - Repeat colonoscopy in 5-10 years for screening purposes. - Return to my office PRN. Uzair Blair DO 12/14/2018 9:20:02 AM This report has been signed electronically. Number of Addenda: 0 Note Initiated On: 12/14/2018 8:41 AM Estimated Blood Loss: Estimated blood loss: none.
[2018-12-14 10:06] VITALS: BP 162/99
== END 2018-12-14 10:05 | disposition home or self-care (01) ==
LOC: M OPP 06:47
PROVIDERS: ATTEND Surgery
DX: K57.30 Diverticulosis of large intestine without perforation or abscess without bleeding (principal); K64.0 First degree hemorrhoids; R12 Heartburn; K29.70 Gastritis, unspecified, without bleeding

== ENCOUNTER 2019-04-14 11:12 | Emergency (ER) | payer OTHER ==
[~2019-04-14] VITALS: Ht 162.6 cm; Wt 113.6 kg
[~2019-04-14 11:12] MED LIST changes: -NS 1,000 ML IV ONE; -OMEP20CA3 PO; +OMEP20CA4 PO
[2019-04-14] MEDS ORDERED: NS 1,000 ML IV ONE ×2 (11:30→13:00)
[2019-04-14 12:03] LABS: BASO # 0.1 10^3/uL (0.0-0.2); BASO % 0.4 % (0.0-1.0); EOS # 0.1 10^3/uL (0.0-0.50); EOS % 0.7 % (0.0-3.0); HEMOGLOBIN 12.5 g/dl (12.0-15.5); LYMPH # 1.9 10^3/uL (1.5-4.5); LYMPH % 15.8 % (24.0-44.0); MEAN CORPUSCULAR HEMOGLOBIN 29.4 pg (27.0-33.0); MEAN CORPUSCULAR HGB CONC 31.3 g/dl (32.0-36.5); MEAN CORPUSCULAR VOLUME 94.1 fl (80.0-96.0); MONO # 0.8 10^3/uL (0.0-0.8); MONO % 6.8 % (0.0-5.0); NEUTROPHILS # 9.2 10^3/uL (1.8-7.7); NEUTROPHILS % 75.6 % (36.0-66.0); PLATELET COUNT, AUTOMATED 302 10^3/uL (150-450); RED BLOOD COUNT 4.25 10^6/uL (4.00-5.40); WHITE BLOOD COUNT 12.2 10^3/uL (4.0-10.0)
[2019-04-14 12:38] LABS: ALBUMIN 3.5 GM/DL (3.2-5.2); BILIRUBIN,TOTAL 0.4 MG/DL (0.2-1.0); CALCIUM LEVEL 9.2 MG/DL (8.8-10.2); CREATININE FOR GFR 1.84 MG/DL (0.55-1.30); MAGNESIUM LEVEL 2.3 MG/DL (1.8-2.4); POTASSIUM SERUM 4.6 MEQ/L (3.5-5.1); TOTAL PROTEIN 7.8 GM/DL (6.4-8.2)
[2019-04-14 14:38] VITALS: BP 173/84
--- NOTE | 2019-04-14 17:40 | ECGEPIP ---
[facility] - ED Test Date: 2019-04-14 Pat Name: KAYLA GLASS Department: Room: - Gender: Female Senior Program Manager: BASILIO : 1955 Requested By: Milagro Meng Order Number: [id number] Reading MD: Milagro Meng Measurements Intervals [place] Rate: 99 P: 62 LA: 136 QRS: QRSD: 95 T: 55 QT: 360 QTc: 462 Interpretive Statements SINUS RHYTHM MARKED LEFT AXIS DEVIATION NONSPECIFIC T-WAVE ABNORMALITY No prior Electronically Signed on 04-14-2019 17:40:12 EDT by Milagro Meng
== END 2019-04-14 14:54 | disposition home or self-care (01) ==
LOC: M ED 11:12 → EDBD 11:12 → M ED 14:54
DX: R25.2 Cramp and spasm (principal); E86.0 Dehydration; I10 Essential (primary) hypertension; F17.200 Nicotine dependence, unspecified, uncomplicated; Z88.8 Allergy status to other drugs, medicaments and biological substances; Z88.1 Allergy status to other antibiotic agents; Z79.899 Other long term (current) drug therapy

== ENCOUNTER → 2019-05-03 | Outpatient (REF) | payer OTHER | LOC: M SFHCPLAZ 17:24 | PROVIDERS: ATTEND Dermatology | DX: R21 Rash and other nonspecific skin eruption (principal) ==

== ENCOUNTER → 2020-05-22 | Outpatient (REF) | payer OTHER ==
[~2020-05-22] MED LIST changes: +OMEP1CAP73 PO; -OMEP20CA4 PO; -VALS1TAB49 PO; +VALS40TA9 PO
== END ==
LOC: M SFHCWAGY 11:35
PROVIDERS: ATTEND Advanced Practice Midwife
DX: Z12.4 Encounter for screening for malignant neoplasm of cervix (principal)
CPT/HCPCS: 87624; G0101; G0123

== ENCOUNTER → 2021-06-11 | Outpatient (CLI) | payer OTHER ==
--- NOTE | 2021-06-11 10:15 | REPMRS ---
Patient History The patient states she has not had a clinical breast exam in over a year. Family history of breast cancer under age 50 in maternal aunt. Reductions of both breasts, 1999. Patient states no breast complaints today. Patient has signed MRS History Sheet. Digital Woman Screen Mammo: June 11, 2021 - Exam #: [id number] Bilateral CC and MLO view(s) were taken. Technologist: Mayi Vasquez, Technologist Prior study comparison: June 10, 2017, bilateral digital mammo screening bilat, performed at [facility]. January 31, 2016, digital woman screen mammo performed at [facility]. October 26, 2014, digital woman screen mammo performed at [facility]. FINDINGS: There are scattered fibroglandular densities. The Volpara volumetric breast density category is:B. There has been no change in the appearance of the mammogram from the prior studies. There is a mild amount of scattered fibroglandular density which is fairly symmetric. There is no interval development of dominant mass, architectural distortion, or grouped microcalcification suggestive of malignancy. 3-D tomosynthesis shows no additional findings. Assessment: BI-RADS/ACR category 1 mammogram. Negative Mammogram. Recommendation Routine screening mammogram of both breasts in 1 year (for women over age 40). This patient's [facility] Lifetime Breast Cancer Risk is estimated at 9.8 %. This mammogram was interpreted with the aid of an FDA-approved computer-aided dectection system. Electronically Signed By: Cam Lynn MD 06/11/21 1014
== END ==
LOC: M WHC 09:24
PROVIDERS: ATTEND Internal Medicine
DX: Z12.31 Encounter for screening mammogram for malignant neoplasm of breast (principal)

== ENCOUNTER → 2021-06-13 | Outpatient (REF) | payer OTHER ==
[2021-06-13 19:35] LABS: APPEARANCE, URINE HAZY (CLEAR); BACTERIA, URINE AUTO NEGATIVE (NEGATIVE); BILIRUBIN, URINE AUTO NEGATIVE (NEGATIVE); BLOOD, URINE BLOOD NEGATIVE (NEGATIVE); COLOR, URINE YELLOW (YELLOW); GLUCOSE, URINE (UA) AUTO NEGATIVE (NEGATIVE); KETONE, URINE AUTO NEGATIVE (NEGATIVE); LEUKOCYTE ESTERASE, URINE AUTO NEGATIVE (NEGATIVE); MUCUS, URINE SMALL (NEGATIVE); NITRITE, URINE AUTO NEGATIVE (NEGATIVE); PROTEIN, URINE AUTO NEGATIVE (NEGATIVE); RBC, URINE AUTO 1 /HPF (0-3); SPECIFIC GRAVITY URINE AUTO 1.019 (1.002-1.035); SQUAMOUS EPITHELIAL CELL UR AU 2 /HPF (0-6); UROBILINOGEN, URINE AUTO 0.2 mg/dL (0.0-2.0); WBC, URINE AUTO 2 /HPF (0-3)
== END ==
LOC: M SMT 17:30
PROVIDERS: ATTEND Nurse Practitioner Women's Health
DX: R32 Unspecified urinary incontinence (principal)
CPT/HCPCS: 51798; 81001; 87086; G0463

== ENCOUNTER → 2021-07-16 | Outpatient (CLI) | payer OTHER | LOC: M LABSMTC 11:37 | PROVIDERS: ATTEND Pediatrics | DX: Z20.822 Contact with and (suspected) exposure to COVID-19 (principal) | CPT/HCPCS: C9803; U0003 ==

== ENCOUNTER → 2022-01-26 | Outpatient (CLI) | payer OTHER | LOC: M PLAIMG 10:02 | PROVIDERS: ATTEND Internal Medicine | DX: M51.26 Other intervertebral disc displacement, lumbar region (principal); M51.27 Other intervertebral disc displacement, lumbosacral region; M51.37 Other intervertebral disc degeneration, lumbosacral region ==

== ENCOUNTER → 2022-06-24 | Outpatient (CLI) | payer OTHER | LOC: M RAD 06:17 | PROVIDERS: ATTEND Internal Medicine | DX: N18.32 Chronic kidney disease, stage 3b (principal); K80.20 Calculus of gallbladder without cholecystitis without obstruction; N28.1 Cyst of kidney, acquired ==

== ENCOUNTER → 2022-08-03 | Outpatient (CLI) | payer OTHER | LOC: M WHC 09:30 | PROVIDERS: ATTEND Internal Medicine | DX: Z12.31 Encounter for screening mammogram for malignant neoplasm of breast (principal) ==

== ENCOUNTER → 2023-02-09 | Outpatient (REF) | payer OTHER | LOC: M LAB REF 17:00 | PROVIDERS: ATTEND Internal Medicine Nephrology | DX: D86.9 Sarcoidosis, unspecified (principal) ==

== ENCOUNTER → 2023-08-18 | Outpatient (REF) | payer OTHER | LOC: M LAB REF 17:11 | PROVIDERS: ATTEND Internal Medicine Nephrology | DX: R30.0 Dysuria (principal) ==

== ENCOUNTER → 2023-10-01 | Outpatient (CLI) | payer MEDICARE, OTHER | LOC: M WHC 11:09 | PROVIDERS: ATTEND Internal Medicine | DX: Z12.31 Encounter for screening mammogram for malignant neoplasm of breast (principal) ==

== ENCOUNTER → 2024-11-14 | Outpatient (CLI) | payer OTHER | LOC: M WHC 13:27 | PROVIDERS: ATTEND Internal Medicine | DX: Z12.31 Encounter for screening mammogram for malignant neoplasm of breast (principal) ==

== ENCOUNTER 2025-09-19 08:49 | Day surgery (SDC) | payer MEDICARE, OTHER ==
[~2025-09-19] VITALS: Ht 162.6 cm; Wt 103.0 kg
[~2025-09-19 08:49] MED LIST changes: +GLYCOPYRROLATE INJ 0.2 MG/ML 2 ML VIAL As Ordered ONE; +LIDOCAINE 2% 100 MG/5 ML SDV (FOR ANES.) As Ordered ONE
[2025-09-19 10:11] VITALS: TEMP 98.4
[2025-09-19] MEDS: ALBUTEROL SULFATE 2.5 MG/0.5 ML INH CONCENTRATE NEB SOLN NEB ONE (10:41)
[2025-09-19 10:46] VITALS: BP 110/64; O2SAT 96
== END 2025-09-19 11:12 | disposition home or self-care (01) ==
LOC: M OPP 08:49
PROVIDERS: ATTEND Surgery
DX: D12.0 Benign neoplasm of cecum (principal); K57.30 Diverticulosis of large intestine without perforation or abscess without bleeding; Z86.0100 Personal history of colon polyps, unspecified; B96.81 Helicobacter pylori [H. pylori] as the cause of diseases classified elsewhere; G47.30 Sleep apnea, unspecified; Z88.1 Allergy status to other antibiotic agents; Z88.8 Allergy status to other drugs, medicaments and biological substances; Z79.899 Other long term (current) drug therapy; J45.998 Other asthma
CPT/HCPCS: 43235; 45385; 88305; J1596